=== PATIENT | female | born 1950 | race Caucasian/White ===

== ENCOUNTER → 2016-07-28 | Outpatient (CLI) | payer OTHER, MEDICARE | LOC: MMPC 09:00 | PROVIDERS: ATTEND Nurse Practitioner Family | DX: I10 Essential (primary) hypertension (principal) | CPT/HCPCS: 99214; G0463 ==

== ENCOUNTER → 2016-08-12 | Outpatient (CLI) | payer OTHER, MEDICARE ==
--- NOTE | 2016-08-12 19:19 | DI ---
CT CHEST SCAN WITHOUT IV CONTRAST, 08/12/2016 12:58 PM : Clinical History: Lung infection. Previous Exam: 10/14/2015. Scans are performed from the base of the neck to the lower lung bases without IV contrast. Sagittal a nd coronal images using non MIPS and MIPS technique are generated. There is a low-density nonfunctioning nodule measuring about 15 x 10 x 10 mm in the upper pole of the left lobe of the thyroid gland and a 15 mm nonfunctioning nodule in the lower pole of the right thyr oid gland. The base of the neck and thoracic inlet are otherwise normal. The patient is status post l eft mastectomy. There are no abnormal axillary, supraclavicular, mediastinal, or hilar nodes. Coronar y artery calcifications are present in the right coronary artery, the proximal third of the LAD, and the left circumflex artery. There is no acute infiltrate or effusion. There are multiple bilateral pu lmonary nodules ranging in size up to 5 mm in diameter in all lobes bilaterally. These have remained stable. Both adrenal glands and the spleen and the visualized portions of the liver and pancreas are normal. No blastic or lytic bony metastases are identified. READIN. There is no acute infiltrate or effusion. Multiple bilateral pulmonary nodules have remained stab le for the past 10 months. If this patient is considered to be of low risk for developing lung cancer , then no further followup is required. If the patient is considered to be of high-risk, then a follo wup study in 14 months is recommended. 2. Interval development of a nonfunctioning nodule in the left lobe of the thyroid gland. The nodule in the lower pole of the right lobe was present before and has not changed. Thyroid ultrasound is re commended to see if these lesions are solid or cystic, unless the thyroid has been previously evaluat ed at least since October of 2015. 3. Coronary artery disease. Status post left mastectomy without evidence of bony metastases.
== END ==
LOC: CT 12:42
PROVIDERS: ATTEND Internal Medicine Infectious Disease
DX: J18.9 Pneumonia, unspecified organism (principal); A31.0 Pulmonary mycobacterial infection
CPT/HCPCS: 71250

== ENCOUNTER → 2016-09-02 | Outpatient (CLI) | payer OTHER, MEDICARE | LOC: MOB LAB 10:34 | PROVIDERS: ATTEND Nurse Practitioner Family | DX: E04.1 Nontoxic single thyroid nodule (principal) | CPT/HCPCS: 84439; 84443; 99213 ==

== ENCOUNTER → 2016-09-07 | Outpatient (CLI) | payer OTHER, MEDICARE ==
--- NOTE | 2016-09-07 16:02 | DI ---
US SOFT TISSUE HEAD/NECK,09/07/2016 12:54 PM: Clinical History: Thyroid nodule. Previous Exam: None at this facility. Findings: Multiple grayscale and color Doppler sonographic images are obtained through the thyroid, and demonst rate diffuse heterogeneity of the thyroid. The right thyroid lobe measured 4.7 x 2.0 x 2.0 cm on the left lobe measured 4.7 x 1.8 x 1.9 cm. The thyroid isthmus measured 3 mm. There are circumscribed complex lesion is located within both thyroid lobes. The one within the left thyroid lobe is predominantly cystic, and measures 15 mm in long axis. The right thyroid lobe contains a complex mass measuring 12 mm in diameter and contains multiple smal l cystic areas. There is also an 8 mm simple cyst noted within the left thyroid lobe. Impression: 1. Complex 12 mm nodule within the right thyroid lobe containing a few cystic areas. Recommend thyroi d biopsy of this lesion. 2. Other predominantly cystic masses as above.
== END ==
LOC: US 12:47
PROVIDERS: ATTEND Nurse Practitioner Family
DX: E04.1 Nontoxic single thyroid nodule (principal)
CPT/HCPCS: 76536

== ENCOUNTER → 2016-09-09 | Outpatient (CLI) | payer OTHER, MEDICARE ==
--- NOTE | 2016-09-09 19:33 | DI ---
US SOFT TISSUE HEAD/NECK BX,09/09/2016 10:34 AM: Clinical History: Thyroid mass. Previous Exam: September 07, 2016 Procedure: The patient came in for biopsy of a thyroid lesion. All of the patient's imaging was reviewed. There is a spongiform mass within the right lobe of the th yroid measuring less than 1 cm. The new lesion within the left thyroid lobe is a complex predominantl y cystic mass. Risks benefits and alternatives were explained to the patient to include the risks of malignancy and to include the patient's unique situation of her lidocaine allergy. Findings: Images were obtained in real-time and a single spot image obtained to confirm the cystic nature of th e left thyroid mass. Impression: After discussion with the patient of risks, benefits and alternatives, the patient decided not to per form a biopsy at this time, but rather to follow this yearly to document stability.
== END ==
LOC: US 10:27
PROVIDERS: ATTEND Nurse Practitioner Family
DX: E04.1 Nontoxic single thyroid nodule (principal)
CPT/HCPCS: 21550

== ENCOUNTER → 2016-10-29 | Outpatient (CLI) | payer OTHER, MEDICARE | LOC: MMPC 09:00 | PROVIDERS: ATTEND Nurse Practitioner Family | DX: I10 Essential (primary) hypertension (principal); A31.0 Pulmonary mycobacterial infection | CPT/HCPCS: 99213; G0463 ==